=== PATIENT | male | born 1960 | race Hispanic/Latino ===

== ENCOUNTER 2017-09-15 22:29 | Emergency (ER) | payer SELFPAY ==
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
== END 2017-09-16 01:08 | disposition home or self-care (01) ==
LOC: ER 22:29
PROC: 0HQ0XZZ Repair Scalp Skin, External Approach (ICD-10-PCS; principal; 2017-09-16)
DX: S01.01XA Laceration without foreign body of scalp, initial encounter (principal); X99.0XXA Assault by sharp glass, initial encounter; Y93.89 Activity, other specified; Y92.009 Unspecified place in unspecified non-institutional (private) residence as the place of occurrence of the external cause; Y99.9 Unspecified external cause status
CPT/HCPCS: 70450; 72125; 99284